=== PATIENT | female | born 1945 | race Two or more races ===

== ENCOUNTER 2019-08-29 05:45 | Day surgery (SDC) | payer OTHER | END 2019-08-29 09:15 | disposition home or self-care (01) | LOC: AMB-ENDOS 05:45 | DX: C20 Malignant neoplasm of rectum (principal); R19.5 Other fecal abnormalities; R59.0 Localized enlarged lymph nodes ==

== ENCOUNTER 2019-09-11 09:00 | Inpatient (IN) | payer OTHER ==
[~2019-09-11] VITALS: Ht 152.4 cm; Wt 68.9 kg
[2019-09-11] MEDS ORDERED: LEVO-T25 MCG PO (10:31)
[2019-09-11] MEDS ORDERED: ATIVAN1 M1 PO (10:31)
[2019-09-11] MEDS ORDERED: ZESTRIL20 MG PO (10:31)
[2019-09-11] MEDS ORDERED: XANAX1 MG PO (10:32)
[2019-09-11] MEDS ORDERED: ZANTAC150 MG PO (10:33)
[2019-09-11] MEDS ORDERED: [UNRECOGNIZED DRUG - OTHER] PO (10:33)
[2019-09-11] MEDS ORDERED: WELLBUTRIN SR150 MG PO (10:33)
[2019-09-11] MEDS ORDERED: NAMENDA5 MG PO (10:34)
[2019-09-14] MEDS ORDERED: HYDREA500 M1 PO ×2 (09:11→09:12)
[2019-09-21] MEDS ORDERED: ULTRACET PO (12:55)
[2019-09-21] MEDS ORDERED: INTESTINEX680 M1 PO (12:55)
[2019-09-21] MEDS ORDERED: PROTONIX40 MG PO (12:56)
[2019-09-21] MEDS ORDERED: IMODIUM A-D2 M2 PO (12:56)
[2019-10-05] MEDS ORDERED: ULTRACET PO (11:42)
[2019-10-05] MEDS ORDERED: IMODIUM A-D2 M2 PO (11:42)
[2019-10-05] MEDS ORDERED: PANTOPRAZOLE SO40 MG PO (11:42)
[2019-10-06] MEDS ORDERED: ULTRACET PO (08:35)
== END 2019-10-06 13:45 | disposition home or self-care (01) | DRG 329 ==
LOC: SURH 09-14 07:00 → SURG 09-14 08:30 → O/R 09-14 08:30 → SURH 09-14 09:00 → O/R 09-14 09:00 → SURG 09-14 18:34
PROVIDERS: ADMIT Surgery
PROC: 0D1B4Z4 Bypass Ileum to Cutaneous, Percutaneous Endoscopic Approach (ICD-10-PCS; 2019-09-14)
PROC: 07TB4ZZ Resection of Mesenteric Lymphatic, Percutaneous Endoscopic Approach (ICD-10-PCS; 2019-09-14)
PROC: 0DJD8ZZ Inspection of Lower Intestinal Tract, Via Natural or Artificial Opening Endoscopic (ICD-10-PCS; 2019-09-14)
PROC: 0DTN4ZZ Resection of Sigmoid Colon, Percutaneous Endoscopic Approach (ICD-10-PCS; principal; 2019-09-14 07:00)
PROC: BW21Y0Z Computerized Tomography (CT Scan) of Abdomen and Pelvis using Other Contrast, Unenhanced and Enhanced (ICD-10-PCS; 2019-09-22)
PROC: 0W9H30Z Drainage of Retroperitoneum with Drainage Device, Percutaneous Approach (ICD-10-PCS; 2019-09-25)
DX: C20 Malignant neoplasm of rectum (principal); K65.1 Peritoneal abscess; E87.0 Hyperosmolality and hypernatremia; K91.31 Postprocedural partial intestinal obstruction; J95.89 Other postprocedural complications and disorders of respiratory system, not elsewhere classified; J98.11 Atelectasis; K91.0 Vomiting following gastrointestinal surgery; A08.8 Other specified intestinal infections; E86.0 Dehydration; E87.5 Hyperkalemia; M62.81 Muscle weakness (generalized); D47.3 Essential (hemorrhagic) thrombocythemia; R50.82 Postprocedural fever; B96.6 Bacteroides fragilis [B. fragilis] as the cause of diseases classified elsewhere; N20.0 Calculus of kidney; K63.89 Other specified diseases of intestine; R59.0 Localized enlarged lymph nodes; F43.22 Adjustment disorder with anxiety; E03.8 Other specified hypothyroidism; I10 Essential (primary) hypertension

== ENCOUNTER 2019-12-18 09:24 | Outpatient (CLI) | payer OTHER ==
[~2019-12-18 09:24] MED LIST: ATIVAN1 M1 PO; HYDREA500 M1 PO; IMODIUM A-D2 M2 PO; INTESTINEX680 M1 PO; LEVO-T25 MCG PO; NAMENDA5 MG PO; PANTOPRAZOLE SO40 MG PO; PROTONIX40 MG PO; ULTRACET PO; WELLBUTRIN SR150 MG PO; XANAX1 MG PO; ZANTAC150 MG PO; ZESTRIL20 MG PO; [UNRECOGNIZED DRUG - OTHER] PO
== END 2019-12-18 14:07 | disposition home or self-care (01) ==
LOC: RX STUDY 09:24
DX: C20 Malignant neoplasm of rectum (principal); R19.5 Other fecal abnormalities; R59.0 Localized enlarged lymph nodes; Z93.2 Ileostomy status

== ENCOUNTER 2019-12-22 10:03 | Inpatient (IN) | payer OTHER ==
[~2019-12-22] VITALS: Ht 152.4 cm; Wt 63.5 kg
[2020-01-01] MEDS ORDERED: HYDREA500 M1 PO (12:46)
[2020-01-01] MEDS ORDERED: XANAX0.25 MG (12:48)
[2020-01-08] MEDS ORDERED: PANTOPRAZOLE SO40 MG PO (09:36)
[2020-01-08] MEDS ORDERED: ULTRACET PO (09:36)
[2020-01-08] MEDS ORDERED: INTESTINEX680 M1 PO (09:37)
[2020-01-08] MEDS ORDERED: CARAFATE1 GM PO (09:37)
== END 2020-01-08 12:12 | disposition home or self-care (01) | DRG 331 ==
LOC: O/R 01-01 06:40 → SURH 01-01 06:40 → SURG 01-01 10:30 → SURH 01-01 13:16
PROVIDERS: ADMIT Surgery
PROC: 0DQB4ZZ Repair Ileum, Percutaneous Endoscopic Approach (ICD-10-PCS; principal; 2020-01-01 12:15)
DX: Z43.2 Encounter for attention to ileostomy (principal); R53.81 Other malaise; K91.0 Vomiting following gastrointestinal surgery; I10 Essential (primary) hypertension; E11.9 Type 2 diabetes mellitus without complications; Z79.4 Long term (current) use of insulin

== ENCOUNTER → 2021-04-25 08:00 | Outpatient (CLI) | payer OTHER ==
[~2021-04-25 08:00] MED LIST changes: +CARAFATE1 GM PO; +XANAX0.25 MG
== END | disposition home or self-care (01) ==
LOC: LAB 08:00 → ADM 14:00 → AMB-ENDOS 04-29 14:00 → EDSTATUS 04-29 14:00
PROVIDERS: ATTEND Surgery
DX: C20 Malignant neoplasm of rectum (principal); R19.5 Other fecal abnormalities; R59.0 Localized enlarged lymph nodes; Z93.2 Ileostomy status; Z03.818 Encounter for observation for suspected exposure to other biological agents ruled out